=== PATIENT | female | born 1985 | race Caucasian/White ===

== ENCOUNTER 2021-11-12 19:25 | Observation (INO) | payer MEDICAID ==
[~2021-11-12] VITALS: Ht 167.6 cm; Wt 76.2 kg
[2021-11-12 21:47] LABS: Basophils # (auto) 0.1 10 ^3/uL (0-0.2); Basophils % (auto) 0.7 % (0.0-2.0); Eosinophils # (auto) 0.1 10 ^3/uL (0-0.8); Eosinophils % (auto) 1.5 % (0.0-7.0); Hematocrit 36.9 % (36.0-46.0); Hemoglobin 12.5 g/dL (12.2-16.2); Lymphocytes # (auto) 1.4 10 ^3/uL (0.4-5.4); Lymphocytes % (auto) 17.7 % (10.0-50.0); Mean Corpuscular Hemoglobin 28.8 pg (28.0-32.0); Mean Corpuscular Hgb Conc. 33.9 g/dL (32.0-36.0); Mean Corpuscular Volume 85.1 fL (80.0-100.0); Monocytes # (auto) 0.6 10 ^3/uL (0-1.3); Monocytes % (auto) 7.5 % (0.0-12.0); Neutrophils # (auto) 5.7 10 ^3/uL (1.6-8.6); Neutrophils % (auto) 72.6 % (37.0-80.0); Nucleated Red Blood Cells % 0.1 %; Red Blood Cells 4.34 10^6/uL (4.0-5.20); Red Cell Distribution Width 13.6 % (11.8-14.3); White Blood Cell 7.8 10^3/uL (4.4-10.8)
[2021-11-12 22:14] LABS: Alcohol, Urine < 3.0 mg/dL (0-10); Amphetamine Screen, Urine NEGATIVE (NEGATIVE); Barbiturate Scree,Urine NEGATIVE (NEGATIVE); Benzodiazephine Screen, Urine NEGATIVE (NEGATIVE); Cannabinoid Screen, Urine NEGATIVE (NEGATIVE); Cocaine Screen, Urine NEGATIVE (NEGATIVE); Opiate Scree,Urine NEGATIVE (NEGATIVE); Phencyclidine Screen, Urine NEGATIVE (NEGATIVE)
[2021-11-12] MEDS ORDERED: PREN-96 OR (23:46)
[2021-11-14 06:06] LABS: RPR Non Reactive (Non Reactive)
== END 2021-11-13 00:19 | disposition home or self-care (01) ==
LOC: LDRP 19:25
PROVIDERS: ADMIT Obstetrics & Gynecology; ATTEND Obstetrics & Gynecology
DX: O24.419 Gestational diabetes mellitus in pregnancy, unspecified control (principal); O62.9 Abnormality of forces of labor, unspecified; Z3A.39 39 weeks gestation of pregnancy; Z79.899 Other long term (current) drug therapy
CPT/HCPCS: 36415; 59025; 76805; 76818; 80307; 85025; 86592; 87081; 94760; G0378

== ENCOUNTER 2021-11-18 18:35 | Inpatient (IN) | payer MEDICAID ==
[~2021-11-18] VITALS: Ht 167.6 cm; Wt 76.2 kg
[~2021-11-18 18:35] MED LIST: PREN-96 OR
[2021-11-18] MEDS ORDERED: BUTORPHANOL TARTRATE 2 MG/1 ML VIAL IV PRN ×2 (21:15)
[2021-11-18] MEDS ORDERED: LIDOCAINE 2%HCL (LOCAL ANESTH.) INJ 20ML MDV IJ PRN (21:15)
[2021-11-18] MEDS ORDERED: PROMETHAZINE HCL 25 MG/ML 1ML IV PRN (21:15)
[2021-11-18] MEDS: LACTATED RINGER'S 1,000 ML IV SCH (21:39)
[2021-11-18] MEDS: PHISODERM TOP SOLN 240ML BTL TOP PRN (21:40)
[2021-11-18] MEDS: DERMOPLAST 60ML BOTTLE TOP PRN (21:40)
[2021-11-18] MEDS: WITCH HAZEL-GLYCERIN PAD TOP PRN (21:40)
[2021-11-18 22:06] LABS: Basophils # (auto) 0 10 ^3/uL (0-0.2); Basophils % (auto) 0.5 % (0.0-2.0); Eosinophils # (auto) 0.1 10 ^3/uL (0-0.8); Eosinophils % (auto) 0.8 % (0.0-7.0); Hematocrit 35.7 % (36.0-46.0); Hemoglobin 12.1 g/dL (12.2-16.2); Lymphocytes # (auto) 1.6 10 ^3/uL (0.4-5.4); Lymphocytes % (auto) 17.5 % (10.0-50.0); Mean Corpuscular Hemoglobin 28.7 pg (28.0-32.0); Mean Corpuscular Volume 84.4 fL (80.0-100.0); Monocytes # (auto) 0.6 10 ^3/uL (0-1.3); Monocytes % (auto) 6.9 % (0.0-12.0); Neutrophils # (auto) 6.9 10 ^3/uL (1.6-8.6); Neutrophils % (auto) 74.3 % (37.0-80.0); Nucleated Red Blood Cells % 0.1 %; Red Blood Cells 4.23 10^6/uL (4.0-5.20); Red Cell Distribution Width 13.6 % (11.8-14.3); White Blood Cell 9.3 10^3/uL (4.4-10.8)
[2021-11-18 22:12] LABS: Urine Bacteria FEW /hpf (None Seen); Urine Blood 1+ /uL (Negative); Urine Specific Gravity 1.011 (1.001-1.035); Urine WBC 4 /hpf (0 - 5)
[2021-11-18 22:25] LABS: Alcohol, Urine < 3.0 mg/dL (0-10); Amphetamine Screen, Urine NEGATIVE (NEGATIVE); Barbiturate Scree,Urine NEGATIVE (NEGATIVE); Benzodiazephine Screen, Urine NEGATIVE (NEGATIVE); Cannabinoid Screen, Urine NEGATIVE (NEGATIVE); Cocaine Screen, Urine NEGATIVE (NEGATIVE); Opiate Scree,Urine NEGATIVE (NEGATIVE); Phencyclidine Screen, Urine NEGATIVE (NEGATIVE)
[2021-11-18 22:26] LABS: Albumin 2.5 g/dL (3.4-5.0); BUN/Creatinine Ratio 10.1; Calcium 8.7 mg/dL (8.5-10.1); Potassium 3.6 mmol/L (3.5-5.1)
[2021-11-18 22:29] LABS: Bilirubin, Total 0.2 mg/dL (0.2-1.0); Total Protein 6.5 g/dL (6.4-8.2)
[2021-11-18 22:39] LABS: INR 0.92 (0.9-1.15); Partial Thromboplastin Time 25.5 sec (23.6-33.0)
[2021-11-19] MEDS ORDERED: fentaNYL CITRATE 100 MCG/2 ML VL IV ONE (00:15)
[2021-11-19] MEDS ORDERED: NALOXONE HCL 0.4 MG/ML VIAL IV ONE (00:15)
[2021-11-19] MEDS ORDERED: ROPIVACAINE HCL 200 ML EPI SCH (00:15)
[2021-11-19] MEDS ORDERED: ePHEDrine SULFATE 50 MG/ML AMP IV ONE (00:15)
[2021-11-19] MEDS: LACTATED RINGER'S 1,000 ML IV SCH ×2 (00:31→03:29)
[2021-11-19] MEDS: ROPIVACAINE HCL 200 ML EPI SCH ×2 (01:52→15:26)
[2021-11-19] MEDS ORDERED: LACT. RINGERS/OXYTOCIN 20UNITS 500 ML IV ONE ×2 (08:00)
[2021-11-19] MEDS ORDERED: LIDOCAINE 2%HCL (LOCAL ANESTH.) INJ 10ml MDV IJ PRN (14:45)
[2021-11-19] MEDS ORDERED: ACETAMINOPHEN 325 MG TAB PO PRN (16:30)
[2021-11-19] MEDS ORDERED: ONDANSETRON ODT 4 MG TAB PO PRN (16:30)
[2021-11-19] MEDS: IBUPROFEN 600 MG TAB PO SCH (17:34)
[2021-11-19 18:39] VITALS: BP 120/70
[2021-11-19 19:00] VITALS: BP 120/70
[2021-11-19] MEDS: DOCUSATE SOD 100 MG CAP PO SCH (22:18)
[2021-11-19 23:25] VITALS: BP 120/71
[2021-11-20] VITALS (7 sets, daily range): BP systolic 105–139; BP diastolic 73–89
[2021-11-20] MEDS: IBUPROFEN 600 MG TAB PO SCH ×4 (00:07→19:36)
[2021-11-20 10:07] LABS: RPR Non Reactive (Non Reactive)
[2021-11-20] MEDS: PHISODERM TOP SOLN 240ML BTL TOP PRN (10:44)
[2021-11-20] MEDS: DERMOPLAST 60ML BOTTLE TOP PRN (10:44)
[2021-11-20] MEDS: WITCH HAZEL-GLYCERIN PAD TOP PRN (10:44)
[2021-11-20] MEDS: DOCUSATE SOD 100 MG CAP PO SCH (22:23)
[2021-11-21] MEDS: IBUPROFEN 600 MG TAB PO SCH ×4 (00:08→18:00)
[2021-11-21 03:00] VITALS: BP 121/77
[2021-11-21 07:30] VITALS: BP 118/65
[2021-11-21 11:30] VITALS: BP 116/60
[2021-11-21 15:11] VITALS: BP 129/77
[2021-11-21 19:00] VITALS: BP 114/73
== END 2021-11-21 20:44 | disposition home or self-care (01) | DRG 560 ==
LOC: UNDOADMOB 18:35 → LDRP 18:35 → OBSVTOIN 20:46 → INTOOBSV 20:46 → LDRP 21:19 → UNDODISIN 11-21 20:44 → EDSTATUS 12-11 15:27
PROVIDERS: ADMIT Obstetrics & Gynecology; ATTEND Obstetrics & Gynecology
PROC: 10D07Z6 Extraction of Products of Conception, Vacuum, Via Natural or Artificial Opening (ICD-10-PCS; principal; 2021-11-19)
PROC: 0W8NXZZ Division of Female Perineum, External Approach (ICD-10-PCS; 2021-11-19)
PROC: 10907ZC Drainage of Amniotic Fluid, Therapeutic from Products of Conception, Via Natural or Artificial Opening (ICD-10-PCS; 2021-11-19)
PROC: 0HQ9XZZ Repair Perineum Skin, External Approach (ICD-10-PCS; 2021-11-19)
PROC: 3E0R3BZ Introduction of Anesthetic Agent into Spinal Canal, Percutaneous Approach (ICD-10-PCS; 2021-11-19)
PROC: 00HU33Z Insertion of Infusion Device into Spinal Canal, Percutaneous Approach (ICD-10-PCS; 2021-11-19)
DX: O69.1XX0 Labor and delivery complicated by cord around neck, with compression, not applicable or unspecified (principal); Z37.0 Single live birth; O70.0 First degree perineal laceration during delivery; Z20.822 Contact with and (suspected) exposure to COVID-19; Z3A.40 40 weeks gestation of pregnancy; Z59.00 Homelessness unspecified
CPT/HCPCS: 36415; 59025; 59409; 62282; 80053; 80307; 81001; 81002; 85025; 85610; 85730; 86592; 86850; 86900; 86901; 94760; 96360; 96361; 96365; 96366; G0378; J2001; J2590